=== PATIENT | male | born 1995 | race Caucasian/White ===

== ENCOUNTER 2016-11-24 12:35 | Emergency (ER) | payer OTHER ==
[~2016-11-24] VITALS: Ht 175.3 cm; Wt 73.0 kg
--- NOTE | 2016-11-24 12:46 | ED Neurological Problem ---
General Stated Complaint: CHEST PAINS/DIZZINESS/N/LIGHTHEADED Source: patient, family History of Present Illness Time seen by provider: 12:41 Initial Comments 21-year-old white male presents with complaint of dizziness, lightheadedness, and chest pain. The patient felt lightheaded last night at his motel and his [id number]-[id number]-yfy who was sharing this week had the same symptoms. Both patients then lost consciousness for 3 hours. Patient was much improved this morning and he and his coworker return to work. However the symptoms recurred precipitating the presentation to the emergency department. There complaining of feeling lightheaded, dizzy, short of breath, and of having chest pressure. The patient's past medical history is significant in that he had pericarditis approximately 3 weeks ago. He was treated with colchicine. He has been improving since. Thorough history films demonstrate a cause for the patient and his coworker ( [id number]) symptoms. Allergies and Home Medications Allergies Coded Allergies: No Known Drug Allergies (Unverified , 11/24/16) Constitutional: No chills, No fever, malaise, weakness Eyes: Denies Blindness, Denies Blurred Vision Ears, Nose, Mouth, Throat: denies epistaxis Cardiovascular: see HPI, chest pain Gastrointestinal: No abdominal pain, No vomiting Genitourinary: no symptoms reported Musculoskeletal: no symptoms reported Skin: no symptoms reported Psychiatric/Neurological: No Symptoms Reported Endocrine: No Symptoms Reported Hematologic/Lymphatic: No Symptoms Reported Past Sddaxib-Azkkpy-Delnjm Hx Patient Social History Recent Foreign Travel: No Contact w/Someone Who Travel: No Reviewed Nursing Assessment Reviewed/Agree w Nursing PMH: Yes Physical Exam Vital Signs Vital Sign - Last 12Hours 11/24/16 11/24/16 13:00 14:57 Temp 97.0 Pulse 70 Resp 18 B/P (MAP) 118/69 Pulse Ox 99 O2 Delivery Nasal Cannula O2 Flow Rate 2.00 Capillary Refill : General Appearance: WD/WN, no apparent distress HEENT: normal ENT inspection Neck: full range of motion, normal inspection Respiratory: lungs clear Cardiovascular: normal peripheral pulses, regular rate, rhythm Gastrointestinal: normal bowel sounds, non tender, soft Back: normal inspection Extremities: normal range of motion, non-tender, normal inspection Neurologic/Psychiatric: no motor/sensory deficits, alert, normal mood/affect, oriented x 3 Crainal Nerves: normal hearing, normal speech Motor/Sensory: no motor deficit, no sensory deficit Skin: normal color, warm/dry Progress/Results/Core Measures Results/Orders Lab Results Laboratory Tests Test 11/24/16 12:50 11/24/16 13:19 11/24/16 13:49 11/24/16 13:52 Range/Units White Blood Count 5.3 4.3-11.0 10^3/uL Red Blood Count 5.05 4.35-5.85 10^6/uL Hemoglobin 15.2 13.3-17.7 G/DL Hematocrit 45 40-54 % Mean Corpuscular Volume 89 80-99 FL Mean Corpuscular Hemoglobin 30 25-34 PG Mean Corpuscular Hemoglobin Concent 34 32-36 G/DL Red Cell Distribution Width 12.4 10.0-14.5 % Platelet Count 278 130-400 10^3/uL Mean Platelet Volume 8.9 7.4-10.4 FL Neutrophils (%) (Auto) 57 42-75 % Lymphocytes (%) (Auto) 31 12-44 % Monocytes (%) (Auto) 9 0-12 % Eosinophils (%) (Auto) 2 0-10 % Basophils (%) (Auto) 1 0-10 % Neutrophils # (Auto) 3.0 1.8-7.8 X 10^3 Lymphocytes # (Auto) 1.7 1.0-4.0 X 10^3 Monocytes # (Auto) 0.5 0.0-1.0 X 10^3 Eosinophils # (Auto) 0.1 0.0-0.3 10^3/uL Basophils # (Auto) 0.1 0.0-0.1 10^3/uL Carboxyhemoglobin 2.0 0.5-2.5 % Sodium Level 142 135-145 MMOL/L Potassium Level 4.1 3.6-5.0 MMOL/L Chloride Level 106 98-107 MMOL/L Carbon Dioxide Level 26 21-32 MMOL/L Anion Gap 10 5-14 MMOL/L Blood Urea Nitrogen 11 7-18 MG/DL Creatinine 1.39 H 0.60-1.30 MG/DL Estimat Glomerular Filtration Rate > 60 BUN/Creatinine Ratio 8 Glucose Level 92 70-105 MG/DL Calcium Level 9.7 8.5-10.1 MG/DL Total Bilirubin 0.6 0.1-1.0 MG/DL Aspartate Amino Transf (AST/SGOT) 13 5-34 U/L Alanine Aminotransferase (ALT/SGPT) 16 0-55 U/L Alkaline Phosphatase 64 40-136 U/L Troponin I < 0.30 <0.30 NG/ML Total Protein 7.4 6.4-8.2 GM/DL Albumin 4.6 H 3.2-4.5 GM/DL Urine Color YELLOW Urine Clarity CLEAR Urine pH 7 5-9 Urine Specific [place] 1.010 L 1.016-1.022 Urine Protein NEGATIVE NEGATIVE Urine Glucose (UA) NEGATIVE NEGATIVE Urine Ketones NEGATIVE NEGATIVE Urine Nitrite NEGATIVE NEGATIVE Urine Bilirubin NEGATIVE NEGATIVE Urine Urobilinogen NORMAL NORMAL MG/DL Urine Leukocyte Esterase NEGATIVE NEGATIVE Urine RBC (Auto) NEGATIVE NEGATIVE Urine RBC NONE /HPF Urine WBC NONE /HPF Urine Squamous Epithelial Cells RARE /HPF Urine Crystals NONE /LPF Urine Bacteria NONE /HPF Urine Casts NONE /LPF Urine Mucus NEGATIVE /LPF Urine Culture Indicated NO Urine Opiates Screen NEGATIVE NEGATIVE Urine Oxycodone Screen NEGATIVE NEGATIVE Urine Methadone Screen NEGATIVE NEGATIVE Urine Propoxyphene Screen NEGATIVE NEGATIVE Urine Barbiturates Screen NEGATIVE NEGATIVE Ur Tricyclic Antidepressants Screen NEGATIVE NEGATIVE Urine Phencyclidine Screen NEGATIVE NEGATIVE Urine Amphetamines Screen NEGATIVE NEGATIVE Urine Methamphetamines Screen NEGATIVE NEGATIVE Urine Benzodiazepines Screen NEGATIVE NEGATIVE Urine Cocaine Screen NEGATIVE NEGATIVE Urine Cannabinoids Screen NEGATIVE NEGATIVE Blood Gas Puncture Site RT RAD Blood Gas Patient Temperature UNKNOWN Arterial Blood pH 7.33 *L 7.37-7.43 Arterial Blood Partial Pressure CO2 55 H 35-45 MMHG Arterial Blood Partial Pressure O2 34 *L 79-93 MMHG Arterial Blood HCO3 28 H 23-27 MMOL/L Arterial Blood Total CO2 30.1 21.0-31.0 MMOL/L Arterial Blood Oxygen Saturation 53 L 94-100 % Arterial Blood Base Excess 3.0 H -2.5-2.5 MMOL/L Rui Test YES-POS Blood Gas Ventilator Setting NO Blood Gas Inspired Oxygen 2L Test 11/24/16 15:11 11/24/16 15:36 Range/Units Blood Gas Puncture Site VENOUS LEFT RADIAL Blood Gas Patient Temperature 98.6 97 Arterial Blood pH 7.34 *L 7.33 *L 7.37-7.43 Arterial Blood Partial Pressure CO2 49 H 55 H 35-45 MMHG Arterial Blood Partial Pressure O2 51 L 30 *L 79-93 MMHG Arterial Blood HCO3 25 29 H 23-27 MMOL/L Arterial Blood Total CO2 26.8 30.6 21.0-31.0 MMOL/L Arterial Blood Oxygen Saturation 85 L 40 L 94-100 % Arterial Blood Base Excess 0.2 3.2 H -2.5-2.5 MMOL/L Rui Test VENOUS POSITIVE Methemoglobin 0.5 0.4-1.5 % Blood Gas Ventilator Setting NO NO Blood Gas Inspired Oxygen UNK 2 L My Orders Orders - MELISSA COX MD Oxygen-Administer 07,19 (11/24/16 12:38) Carboxyhemoglobin (11/24/16 12:38) Cbc With Automated Diff (11/24/16 12:38) Arterial Blood Gas (11/24/16 12:38) Comprehensive Metabolic Panel (11/24/16 12:38) Drug Screen Stat (Urine) (11/24/16 12:38) Continuous Ekg Monitoring (11/24/16 12:47) Troponin I (11/24/16 12:47) Chest 1 View, Ap/Pa Only (11/24/16 12:48) Ekg Tracing (11/24/16 13:08) Urinalysis (11/24/16 14:53) Lactic Acid Analyzer (11/24/16 14:57) Arterial Blood Gas (11/24/16 15:02) Methemoglobin (11/24/16 15:03) Arterial Blood Gas (11/24/16 15:18) Drug Screen Urine Cl(Send Out) (11/24/16 16:30) Vital Signs/I&O Vital Sign - Last 12Hours 11/24/16 11/24/16 13:00 14:57 Temp 97.0 Pulse 70 Resp 18 B/P (MAP) 118/69 Pulse Ox 99 O2 Delivery Nasal Cannula Nasal Cannula O2 Flow Rate 2.00 2.00 Progress Note : Time: 16:52 Progress Note Patient was observed in the emergency department for next 3 hours while a plethora of laboratory evaluation was undertaken. The patient's laboratory values were all within normal limits other than explained hypoxia and respiratory acidosis on his ABGs. Decision was finally resolved with a normal blood gas which I obtained from the patient's brother in law, who had had similar confusing findings, which I karla from the femoral area. Number: Calls were undertaken with [facility] to sort out the patient's findings. Ultimately was recommended the patient have a follow-up back in the [facility] where he lives. Urine drug screen was obtained for a send out. The patient's stat urine drug screen in the emergency department was negative. Departure Impression Impression: Primary Impression: Chemical exposure Disposition: 01 HOME, SELF-CARE Condition: Improved Departure-Patient Inst. Decision time for Depature: 16:55 Referrals: NO,LOCAL PHYSICIAN (PCP) Primary Care Physician Add. Discharge Instructions: Close follow-up with her doctor in [place]. Rest here in [facility] and return to the emergency department if he had any further episodes. MELISSA COX MD Nov 24, 2016 12:46
[2016-11-24 13:02] LABS: BASOPHILS # (AUTO) 0.1 10^3/uL (0.0-0.1); BASOPHILS % (AUTO) 1 % (0-10); EOSINOPHILS # (AUTO) 0.1 10^3/uL (0.0-0.3); EOSINOPHILS % (AUTO) 2 % (0-10); LYMPHOCYTES # (AUTO) 1.7 X 10^3 (1.0-4.0); LYMPHOCYTES % (AUTO) 31 % (12-44); MEAN CORPUSCULAR HEMOGLOBIN 30 PG (25-34); MEAN CORPUSCULAR HGB CONC 34 G/DL (32-36); MEAN CORPUSCULAR VOLUME 89 FL (80-99); MEAN PLATELET VOLUME 8.9 FL (7.4-10.4); MONOCYTES # (AUTO) 0.5 X 10^3 (0.0-1.0); MONOCYTES % (AUTO) 9 % (0-12); NEUTROPHILS % (AUTO) 57 % (42-75); PLATELET COUNT 278 10^3/uL (130-400); RED BLOOD COUNT 5.05 10^6/uL (4.35-5.85); RED CELL DISTRIBUTION WIDTH 12.4 % (10.0-14.5); WHITE BLOOD COUNT 5.3 10^3/uL (4.3-11.0)
[2016-11-24 13:29] LABS: ALANINE AMINOTRANSFERASE 16 U/L (0-55); ALBUMIN 4.6 GM/DL (3.2-4.5); ANION GAP 10 MMOL/L (5-14); ASPARTATE AMINO TRANSFERASE 13 U/L (5-34); BILIRUBIN,TOTAL 0.6 MG/DL (0.1-1.0); BLOOD UREA NITROGEN 11 MG/DL (7-18); BUN/CREATININE RATIO 8; CALCIUM 9.7 MG/DL (8.5-10.1); CARBON DIOXIDE 26 MMOL/L (21-32); CHLORIDE 106 MMOL/L (98-107); CREATININE SERUM 1.39 MG/DL (0.60-1.30); GFR ESTIMATED > 60; GLUCOSE 92 MG/DL (70-105); POTASSIUM 4.1 MMOL/L (3.6-5.0); SODIUM 142 MMOL/L (135-145); TOTAL PROTEIN 7.4 GM/DL (6.4-8.2)
[2016-11-24 13:35] LABS: TROPONIN I < 0.30 NG/ML (<0.30)
--- NOTE | 2016-11-24 13:39 | Diagnostic Imaging Report ---
INDICATION: Chest discomfort with dizziness. Portable upright view of the chest is obtained. There is no previous study for comparison. Heart size and pulmonary vascularity are within normal limits. There is no pneumothorax or consolidation. Right convexity curvature of the thoracic spine is noted with extensive bilateral fusion rods in place. IMPRESSION: No acute abnormalities identified. Dictated by: Dictated on workstation # [id number]
[2016-11-24 14:04] LABS: ABG HCO3 28 MMOL/L (23-27); ABG OXYGEN SATURATION 53 % (94-100); ABG PCO2 55 MMHG (35-45); ABG TCO2 30.1 MMOL/L (21.0-31.0)
[2016-11-24 14:14] LABS: ABG PH 7.33 (7.37-7.43); ABG PO2 34 MMHG (79-93); ALLENS TEST YES-POS
[2016-11-24 15:04] LABS: BILIRUBIN,URINE NEGATIVE (NEGATIVE); KETONES,URINE NEGATIVE (NEGATIVE); LEUKOCYTE ESTERASE ,URINE NEGATIVE (NEGATIVE); NITRITE,URINE NEGATIVE (NEGATIVE); PH,URINE 7 (5-9); PROTEIN,URINE NEGATIVE (NEGATIVE); UROBILINOGEN,URINE NORMAL (NORMAL)
[2016-11-24 15:20] LABS: ABG BASE EXCESS 0.2 MMOL/L (-2.5-2.5); ABG HCO3 25 MMOL/L (23-27); ABG OXYGEN SATURATION 85 % (94-100); ABG PCO2 49 MMHG (35-45); ABG PO2 51 MMHG (79-93); ABG TCO2 26.8 MMOL/L (21.0-31.0)
[2016-11-24 15:22] LABS: SQUAMOUS EPITHELIAL CELL,UR RARE /HPF
[2016-11-24 15:25] LABS: ABG PH 7.34 (7.37-7.43); ALLENS TEST VENOUS; PATIENT TEMP 98.6
[2016-11-24 15:44] LABS: ABG BASE EXCESS 3.2 MMOL/L (-2.5-2.5); ABG HCO3 29 MMOL/L (23-27); ABG OXYGEN SATURATION 40 % (94-100); ABG PCO2 55 MMHG (35-45); ABG TCO2 30.6 MMOL/L (21.0-31.0)
[2016-11-24 15:45] LABS: ABG PH 7.33 (7.37-7.43); ABG PO2 30 MMHG (79-93); ALLENS TEST POSITIVE; PATIENT TEMP 97
[2016-11-24 17:00] VITALS: BP 127/76
[2016-11-25 07:00] LABS: CREATININE URINE 94 MG/DL
[2016-11-25 07:01] LABS: BENZODIAZEPINE URINE QUAL DS Negative; METHADONE URINE QUAL DS Negative; OPIATES URINE QUAL DS Negative; PCP URINE QUAL DS Negative; PROPOXYPHENE URINE QUAL DS Negative; SALICYLATE URINE Negative; THC URINE QUAL DS Negative; URINE DRUG SCREEN Negative
[2016-11-25 07:02] LABS: ETHANOL URINE QUAL DS Negative
== END 2016-11-24 16:59 | disposition home or self-care (01) ==
LOC: ER 12:41
DX: R42 Dizziness and giddiness (principal); R07.9 Chest pain, unspecified; I31.9 Disease of pericardium, unspecified; R06.02 Shortness of breath; Z77.098 Contact with and (suspected) exposure to other hazardous, chiefly nonmedicinal, chemicals
CPT/HCPCS: 36415; 71010; 80053; 80306; 80307; 81000; 82375; 82805; 83050; 84484; 85025

== ENCOUNTER 2016-11-24 21:42 | Emergency (ER) | payer OTHER ==
[~2016-11-24] VITALS: Ht 175.3 cm; Wt 73.0 kg
--- NOTE | 2016-11-24 22:14 | ED General ---
General Chief Complaint: General Problems/Pain Stated Complaint: DIZZINESS Source of Information: Patient, Family, Old Records Exam Limitations: No Limitations History of Present Illness Time Seen by Provider: 22:11 Initial Comments Patient presents to ER by private conveyance with his jomdwvm-sm-itg/coworker who is experiencing similar symptoms today of lightheadedness like he could pass out but no dizziness room spinning or off balance. He states these feelings began yesterday evening after staying in a hotel in [facility]. 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 No historical contextual clues were helpful from this morning. There are released from the ER and went to get a bite to eat then return to the holiday in or he still started feeling lightheaded like he could pass out but then he got a phone call from his pcjpavp-kf-qpo who said that he had vomited 1 and felt like the room was spinning. There are both feeling worse so they return to the ER tonight. He is not having any nausea vomiting fevers chills recent illness, travel outside the [facility], history of tobacco use, rash, sweats, diarrhea, constitutional symptoms. They've been doing this job for many years and the only volatile chemical that they are exposed to is gasoline. 3 weeks ago the patient was having a lot of chest pains want to the hospital and was prescribed colchicine for pericarditis. He took his last dose today. He still having a little achiness in his chest is much better than when it started. Allergies and Home Medications Allergies Coded Allergies: No Known Drug Allergies (Unverified , 11/24/16) Constitutional: see HPI, No chills, No diaphoresis, dizziness, No fever, malaise, No weakness EENTM: No blurred vision, No double vision Respiratory: No cough, No short of breath Cardiovascular: No chest pain, No palpitations, No syncope, No vascular heart diseas Gastrointestinal: No abdominal pain, No constipation, No nausea, No vomiting Genitourinary: No discharge, No dysuria Musculoskeletal: No muscle pain, No muscle twitching, No muscle weakness Skin: No pruritus, No rash Psychiatric/Neurological: Denies Headache, Denies Numbness, Paresthesia Past Pboygno-Nsmuqj-Dhjugg Hx Patient Social History Alcohol Use: Occasionally Uses Recreational Drug Use: No Smoking Status: Never a Smoker 2nd Hand Smoke Exposure: No Recent Foreign Travel: No Contact w/Someone Who Travel: No Recent Hopitalizations: No Immunizations Up To Date Tetanus Booster (TDap): Less than 5yrs Seasonal Allergies Seasonal Allergies: No Surgeries History of Surgeries: Yes Surgeries: Orthopedic Respiratory History of Respiratory Disorde: No Cardiovascular History of Cardiac Disorders: Yes Cardiac Disorders: Pericarditis Neurological History of Neurological Disord: No Gastrointestinal History of Gastrointestinal Di: No Musculoskeletal History of Musculoskeletal Dis: No Endocrine History of Endocrine Disorders: No HEENT History of HEENT Disorders: No Cancer History of Cancer: No Psychosocial History of Psychiatric Problem: No Integumentary History of Skin or Integumenta: No Blood Transfusions History of Blood Disorders: No Physical Exam Vital Signs Vital Sign - Last 12Hours 11/24/16 22:10 Temp 98.2 Pulse 57 Resp 18 B/P (MAP) 111/71 Pulse Ox 100 Capillary Refill : General Appearance: No Apparent Distress, WD/WN Eyes: Bilateral Eye Normal Inspection, Bilateral Eye PERRL, Bilateral Eye EOMI HEENT: PERRL/EOMI, TMs Normal, Normal ENT Inspection, Pharynx Normal Neck: Full Range of Motion, Normal Inspection, Non Tender Respiratory: Chest Non Tender, Lungs Clear, Normal Breath Sounds Cardiovascular: Regular Rate, Rhythm, No Edema, No Gallop, No Murmur, Normal Peripheral Pulses Gastrointestinal: Normal Bowel Sounds, No Organomegaly, Non Tender, Soft Extremity: Normal Capillary Refill, Normal Inspection, No Calf Tenderness, No Pedal Edema Neurologic/Psychiatric: Alert, Oriented x3 Skin: Normal Color, Warm/Dry Progress/Results/Core Measures Results/Orders Lab Results Laboratory Tests Test 11/24/16 22:00 Range/Units White Blood Count 5.5 4.3-11.0 10^3/uL Red Blood Count 5.03 4.35-5.85 10^6/uL Hemoglobin 15.1 13.3-17.7 G/DL Hematocrit 45 40-54 % Mean Corpuscular Volume 89 80-99 FL Mean Corpuscular Hemoglobin 30 25-34 PG Mean Corpuscular Hemoglobin Concent 34 32-36 G/DL Red Cell Distribution Width 12.4 10.0-14.5 % Platelet Count 268 130-400 10^3/uL Mean Platelet Volume 9.0 7.4-10.4 FL Neutrophils (%) (Auto) 48 42-75 % Lymphocytes (%) (Auto) 37 12-44 % Monocytes (%) (Auto) 12 0-12 % Eosinophils (%) (Auto) 2 0-10 % Basophils (%) (Auto) 2 0-10 % Neutrophils # (Auto) 2.6 1.8-7.8 X 10^3 Lymphocytes # (Auto) 2.0 1.0-4.0 X 10^3 Monocytes # (Auto) 0.7 0.0-1.0 X 10^3 Eosinophils # (Auto) 0.1 0.0-0.3 10^3/uL Basophils # (Auto) 0.1 0.0-0.1 10^3/uL Sodium Level 143 135-145 MMOL/L Potassium Level 3.7 3.6-5.0 MMOL/L Chloride Level 106 98-107 MMOL/L Carbon Dioxide Level 25 21-32 MMOL/L Anion Gap 12 5-14 MMOL/L Blood Urea Nitrogen 12 7-18 MG/DL Creatinine 1.14 0.60-1.30 MG/DL Estimat Glomerular Filtration Rate > 60 BUN/Creatinine Ratio 11 Glucose Level 95 70-105 MG/DL Calcium Level 10.2 H 8.5-10.1 MG/DL Total Bilirubin 0.7 0.1-1.0 MG/DL Aspartate Amino Transf (AST/SGOT) 13 5-34 U/L Alanine Aminotransferase (ALT/SGPT) 17 0-55 U/L Alkaline Phosphatase 66 40-136 U/L Total Protein 7.3 6.4-8.2 GM/DL Albumin 4.5 3.2-4.5 GM/DL My Orders Orders - TABBY GRIER Ekg Tracing (11/24/16 22:01) Cbc With Automated Diff (11/24/16 22:15) Comprehensive Metabolic Panel (11/24/16 22:15) Chest Pa/Lat (2 View) (11/24/16 22:15) Saline Lock/Iv-Start (11/24/16 22:15) Ns Iv 1000 Ml (Sodium Chloride 0.9%) (11/24/16 22:15) Continuous Ekg Monitoring (11/24/16 22:15) Medications Given in ED Current Medications Medications Dose Ordered Sig/Kin Route Start Time Stop Time Status Last Admin Dose Admin Sodium Chloride 1,000 ml @ 0 mls/hr Q0M ONCE IV 11/24/16 22:15 11/24/16 22:18 DC 11/24/16 22:29 1,000 MLS/HR Vital Signs/I&O Vital Sign - Last 12Hours 11/24/16 22:10 Temp 98.2 Pulse 57 Resp 18 B/P (MAP) 111/71 Pulse Ox 100 Intake and Output 11/25/16 00:00 Intake Total 1000 ml Balance 1000 ml Progress Note : Time: 23:25 Progress Note We have looked for life-threatening things such as cardiac, dissection, subarachnoid hemorrhage, carotid artery disease and these are unlikely based on history. His EKG and troponins on this morning were negative. EKG and chest x- ray today are unremarkable. ECG Initial ECG Impression Date: Nov 24, 2016 Initial ECG Impression Time: 22:11 Initial ECG Rate: 60 Initial ECG Rhythm: Normal Sinus Initial ECG Intervals: Normal Initial ECG Impression: Normal, Nonspecific Changes Initial ECG Comparisson: Unchanged Comment No ST wave elevation or depression Diagnostic Imaging Diagonstic Imaging: Xray Plain Films/CT/US/NM/MRI: chest Comments Unremarkable chest x-ray for acute cardiopulmonary processes. Scoliosis with hardware noted. Reviewed: Reviewed by Me Departure Impression Impression: Primary Impression: Dizziness of unknown cause Disposition: 01 HOME, SELF-CARE Condition: Stable Departure-Patient Inst. Decision time for Depature: 23:27 Referrals: NO,LOCAL PHYSICIAN (PCP) Primary Care Physician Add. Discharge Instructions: Return to the ER for new or worrisome symptoms such as chest pain, fever, nausea and vomiting. Take shower drink plenty fluids and get some sleep tonight. If you're feeling better go ahead and head on to [place] in the morning but will be rao to get your medical record for you go. All discharge instructions reviewed with patient and/or family. Voiced understanding. Work/School Note: Work Release Form Date Seen in the Emergency Department: Nov 24, 2016 Return to Work: Nov 24, 2016 Restrictions: No Restrictions TABBY GRIER Nov 24, 2016 22:14
[2016-11-24 22:23] LABS: BASOPHILS # (AUTO) 0.1 10^3/uL (0.0-0.1); BASOPHILS % (AUTO) 2 % (0-10); EOSINOPHILS # (AUTO) 0.1 10^3/uL (0.0-0.3); EOSINOPHILS % (AUTO) 2 % (0-10); LYMPHOCYTES % (AUTO) 37 % (12-44); MEAN CORPUSCULAR HEMOGLOBIN 30 PG (25-34); MEAN CORPUSCULAR HGB CONC 34 G/DL (32-36); MEAN CORPUSCULAR VOLUME 89 FL (80-99); MONOCYTES # (AUTO) 0.7 X 10^3 (0.0-1.0); MONOCYTES % (AUTO) 12 % (0-12); NEUTROPHILS # (AUTO) 2.6 X 10^3 (1.8-7.8); NEUTROPHILS % (AUTO) 48 % (42-75); PLATELET COUNT 268 10^3/uL (130-400); RED BLOOD COUNT 5.03 10^6/uL (4.35-5.85); RED CELL DISTRIBUTION WIDTH 12.4 % (10.0-14.5); WHITE BLOOD COUNT 5.5 10^3/uL (4.3-11.0)
[2016-11-24] MEDS: NS IV 1000 ML 1,000 ML IV ONE (22:29)
[2016-11-24 22:34] LABS: ALANINE AMINOTRANSFERASE 17 U/L (0-55); ALBUMIN 4.5 GM/DL (3.2-4.5); ANION GAP 12 MMOL/L (5-14); ASPARTATE AMINO TRANSFERASE 13 U/L (5-34); BILIRUBIN,TOTAL 0.7 MG/DL (0.1-1.0); BLOOD UREA NITROGEN 12 MG/DL (7-18); BUN/CREATININE RATIO 11; CALCIUM 10.2 MG/DL (8.5-10.1); CARBON DIOXIDE 25 MMOL/L (21-32); CHLORIDE 106 MMOL/L (98-107); CREATININE SERUM 1.14 MG/DL (0.60-1.30); GFR ESTIMATED > 60; GLUCOSE 95 MG/DL (70-105); POTASSIUM 3.7 MMOL/L (3.6-5.0); SODIUM 143 MMOL/L (135-145); TOTAL PROTEIN 7.3 GM/DL (6.4-8.2)
[2016-11-24 23:44] VITALS: BP 118/74
--- NOTE | 2016-11-25 08:22 | Diagnostic Imaging Report ---
INDICATION: Dizziness PA and lateral chest obtained at 10:44 hrs. p.m. and compared to same day at 1:17 hours p.m. Heart and mediastinal silhouette are normal in appearance. The lungs are clear. There is no pneumothorax or pleural fluid. Spinal rods are unchanged in position. IMPRESSION: No acute process in the chest and no change compared to earlier today. Dictated by: Dictated on workstation # [id number]
== END 2016-11-24 23:44 | disposition home or self-care (01) ==
LOC: EDUNIT# 21:42 → ER 21:43
DX: R42 Dizziness and giddiness (principal); I30.9 Acute pericarditis, unspecified; Z87.891 Personal history of nicotine dependence; Z98.890 Other specified postprocedural states
CPT/HCPCS: 36415; 71020; 80053; 85025; 96360